=== PATIENT | female | born 1955 | race Caucasian/White ===

== ENCOUNTER → 2017-03-28 | Outpatient (CLI) | payer OTHER ==
--- NOTE | 2017-03-28 16:28 | PCVCIMAG ---
APPROVED REPORT Study performed: 03/28/2017 11:18:55 EXAM: Comprehensive 2D, Doppler, and color-flow Echocardiogram Patient Location: Echo lab Status: routine Other Information Study Quality: Adequate Indications CAD Hypertension/HDD paroxysmal atrial tachycardia 2D Dimensions LVEF(%): 77.67 (>50%) IVSd: 8.89 (7-11mm)LVOT Diam: 21.74 (18-24mm) LVDd: 39.60 mm PWd: 7.02 (7-11mm)Ascending Ao: 33.60 (22-36mm) LVDs: 21.48 (25-40mm) Left Atrium: 27.92 (27-40mm) Aortic Root: 29.73 mm LV Single Plane 4CH: 55.41 % LV Single Plane 2CH: 57.80 %Mathias's LVEF: 56.60 % Biplane EF: 56.3 % Volumes Left Atrial Volume (Systole) Single Plane 4CH: 35.68 mLSingle Plane 2CH: 32.95 mL LA ESV Index: 23.00 mL/m2 Aortic Valve AoV Peak Jerrell.: 1.54 m/s AO Peak Gr.: 9.48 mmHgLVOT Max P.02 mmHg LVOT Max V: 1.00 m/s SHERI Vmax: 2.42 cm2 Mitral Valve E/A Ratio: 1.1 MV Decel. Time: 103.23 ms MV E Max Jerrell.: 0.81 m/s MV A Jerrell.: 0.74 m/s MV PHT: 29.94 ms IVRT: 89.97 ms Pulmonary Valve PV Peak Jerrell.: 1.09 m/sPV Peak Gr.: 4.71 mmHg Pulmonary Vein P Vein S: 0.45 m/sP Vein A: 0.32 m/s P Vein D: 0.48 m/sP Vein A Dur.: 86.5 msec P Vein S/D Ratio: 0.94 Tricuspid Valve TR Peak Jerrell.: 2.09 m/s TR Peak Gr.: 17.41 mmHg TV Vmax: 0.75 m/s Left Ventricle The left ventricle is normal size. There is normal LV segmental wall motion. There is normal left ventricular wall thickness. Left ventricular systolic function is normal. The left ventricular ejection fraction is within the normal range. LVEF is 55-60%. Grade I - abnormal relaxation pattern. Right Ventricle The right ventricle is normal size. The right ventricular systolic function is normal. Atria The left atrium size is normal. The right atrium size is normal. Aortic Valve The aortic valve is normal in structure. No aortic regurgitation is present. There is no aortic valvular stenosis. Mitral Valve The mitral valve is normal in structure. There is no mitral valve regurgitation noted. No evidence of mitral valve stenosis. Tricuspid Valve The tricuspid valve is normal in structure. Trace to mild tricuspid regurgitation. Normal PA pressure of 24 mmHg. Pulmonic Valve The pulmonary valve is normal in structure. There is no pulmonic valvular regurgitation. Great Vessels The aortic root is normal in size. IVC is normal in size and collapses with >50% inspiration Pericardium There is no pericardial effusion. <Conclusion> The left ventricle is normal size. Left ventricular systolic function is normal. The right ventricle is normal size. The left atrium size is normal. The aortic valve is normal in structure. The mitral valve is normal in structure. Trace to mild tricuspid regurgitation. Normal PA pressure of 24 mmHg.
== END | disposition home or self-care (01) ==
LOC: PCVCIMAG 11:09
PROVIDERS: ATTEND Internal Medicine Cardiovascular Disease
DX: I25.10 Atherosclerotic heart disease of native coronary artery without angina pectoris (principal); I10 Essential (primary) hypertension; E78.00 Pure hypercholesterolemia, unspecified; E11.9 Type 2 diabetes mellitus without complications; I47.1 Supraventricular tachycardia
CPT/HCPCS: 93306

== ENCOUNTER → 2018-04-04 | Outpatient (CLI) | payer OTHER | END | disposition home or self-care (01) | LOC: PCVCIMAG 09:13 | DX: I25.10 Atherosclerotic heart disease of native coronary artery without angina pectoris (principal); I10 Essential (primary) hypertension; E78.5 Hyperlipidemia, unspecified; E11.9 Type 2 diabetes mellitus without complications; Z87.891 Personal history of nicotine dependence | CPT/HCPCS: 78452; 93017; A9500 ==

== ENCOUNTER → 2019-04-10 | Outpatient (CLI) | payer BC ==
--- NOTE | 2019-04-10 13:58 | PCVCIMAG ---
APPROVED REPORT Risk Factors Hypertension: Diabetes, CAD Doppler Spectral Velocity Analysis PSV / EDVPSV / EDV ECA (R) 35 / 9 cm/sECA (L) 56 / 8 cm/s dICA (R) 69 / 25 cm/sdICA (L) 69 / 26 cm/s Wesly (R) 73 / 30 cm/smICA (L) 80 / 32 cm/s pICA (R) 63 / 26 cm/spICA (L) 63 / 20 cm/s Bulb (R) 51 / 19 cm/sBulb (L) 54 / 21 cm/s dCCA (R) 70 / 25 cm/sdCCA (L) 72 / 25 cm/s mCCA (R) 55 / 14 cm/smCCA (L) 88 / 25 cm/s Vert (R) 39 / 11 cm/sVert (L) 51 / 20 cm/s ICA/CCA 1.04 ICA/CCA 0.91 Basic Measurements Blood Pressure: Pulses: Right Left RightLeft Brachial(Sitting) 108/17vkBk280/70mmHgTemporal Real Time B-Mode Imaging Vert. (R)AntegradeVert. (L)Antegrade Findings RIGHT CAROTID: The carotid bulb has mild plaque. The proximal internal carotid artery shows <40% stenosis. The common carotid artery shows no significant stenosis. The external carotid artery shows no significant stenosis. LEFT CAROTID: The carotid bulb has mild plaque. The proximal internal carotid artery shows <40% stenosis. The common carotid artery shows no significant stenosis. The external carotid artery shows no significant stenosis. Conclusion <40% stenosis of the right internal carotid artery with mild plaque. <40% stenosis of the left internal carotid artery with mild plaque. No change since October 2014 study.
== END | disposition home or self-care (01) ==
LOC: PCVCIMAG 13:01
PROVIDERS: ATTEND Internal Medicine Cardiovascular Disease
DX: I65.23 Occlusion and stenosis of bilateral carotid arteries (principal); I25.10 Atherosclerotic heart disease of native coronary artery without angina pectoris; I10 Essential (primary) hypertension; E11.9 Type 2 diabetes mellitus without complications
CPT/HCPCS: 93880

== ENCOUNTER → 2019-10-04 | Outpatient (CLI) | payer BC ==
--- NOTE | 2019-10-04 16:17 | PCVCIMAG ---
APPROVED REPORT Study performed: 10/04/2019 15:01:25 EXAM: Comprehensive 2D, Doppler, and color-flow Echocardiogram Patient Location: Echo lab Room #: 2Status: routine BSA: 1.76 HR: 74 bpmBP: 128/62 mmHg Rhythm: NSR Other Information Study Quality: Good Risk Factors: Cardiac Risk Factors: DM, HTN Indications CAD Hx SVT, S/P stent 2D Dimensions IVSd: 6.95 (7-11mm)LVOT Diam: 20.59 (18-24mm) LVDd: 42.83 mm PWd: 8.49 (7-11mm)Ascending Ao: 32.20 (22-36mm) LVDs: 22.64 (25-40mm) Left Atrium: 30.62 (27-40mm) Aortic Root: 30.04 mm LV Single Plane 4CH: 62.72 % LV Single Plane 2CH: 71.34 % Biplane EF: 67.3 % Volumes Left Atrial Volume (Systole) Single Plane 4CH: 30.42 mLSingle Plane 2CH: 53.54 mL Biplane LA Volume: 42.00 mLLA ESV Index: 24.00 mL/m2 Aortic Valve AoV Peak Jerrell.: 1.73 m/s AO Peak Gr.: 12.67 mmHgLVOT Max P.41 mmHg LVOT Max V: 1.16 m/s SHERI Vmax: 2.24 cm2 Mitral Valve E/A Ratio: 1.0 MV Decel. Time: 179.92 ms MV E Max Jerrell.: 0.82 m/s MV A Jerrell.: 0.82 m/s IVRT: 79.58 ms Pulmonary Valve PV Peak Jerrell.: 1.05 m/sPV Peak Gr.: 4.39 mmHg Pulmonary Vein P Vein S: 0.54 m/sP Vein A: 0.40 m/s P Vein D: 0.42 m/sP Vein A Dur.: 65.7 msec P Vein S/D Ratio: 1.29 Tricuspid Valve TR Peak Jerrell.: 2.70 m/s TR Peak Gr.: 29.21 mmHg TV Vmax: 0.78 m/sPA Pressure: 36.00 mmHg Left Ventricle The left ventricle is normal size. There is normal LV segmental wall motion. There is normal left ventricular wall thickness. Left ventricular systolic function is normal. The left ventricular ejection fraction is within the normal range. LVEF is 65-70%. Right Ventricle The right ventricle is normal size. The right ventricular systolic function is normal. Atria The left atrium size is normal. The right atrium size is normal. Aortic Valve Aortic valve is trileaflet. The aortic valve is normal in structure and function. No aortic regurgitation is present. There is no aortic valvular stenosis. Mitral Valve The mitral valve is normal in structure. There is no mitral valve regurgitation noted. No evidence of mitral valve stenosis. Tricuspid Valve The tricuspid valve is normal in structure. Mild tricuspid regurgitation with a PA pressure of 36 mmHg. Mild pulmonary hypertension. Pulmonic Valve The pulmonary valve is normal in structure. There is no pulmonic valvular regurgitation. Great Vessels The aortic root is normal in size. The ascending aorta is normal in size. Aortic arch is normal in caliber. IVC is normal in size and collapses >50% with inspiration. Pericardium There is no pericardial effusion. There is no pleural effusion. <Conclusion> The left ventricle is normal size. There is normal left ventricular wall thickness. Left ventricular systolic function is normal. The right ventricle is normal size. The left atrium size is normal. Aortic valve is trileaflet. There is no mitral valve regurgitation noted. Mild tricuspid regurgitation with a PA pressure of 36 mmHg.
== END | disposition home or self-care (01) ==
LOC: PCVCIMAG 14:37
PROVIDERS: ATTEND Internal Medicine Cardiovascular Disease
DX: I36.1 Nonrheumatic tricuspid (valve) insufficiency (principal); I27.20 Pulmonary hypertension, unspecified; I47.1 Supraventricular tachycardia; I25.10 Atherosclerotic heart disease of native coronary artery without angina pectoris; E11.9 Type 2 diabetes mellitus without complications; E78.5 Hyperlipidemia, unspecified; E78.00 Pure hypercholesterolemia, unspecified; E03.9 Hypothyroidism, unspecified; Z87.891 Personal history of nicotine dependence; Z88.8 Allergy status to other drugs, medicaments and biological substances; Z78.0 Asymptomatic menopausal state
CPT/HCPCS: 93306